=== PATIENT | male | born 1985 | race Caucasian/White ===

== ENCOUNTER 2023-04-04 12:18 | Emergency (ER) | payer OTHER, SELFPAY ==
[2023-04-04 12:42] VITALS: BP 152/103
[2023-04-04 12:49] VITALS: BP 152/103
[2023-04-04 13:00] VITALS: BP 134/62
--- NOTE | 2023-04-04 13:23 | ED.GENMED ---
History of Present Illness
General
Chief Complaint: Fainting/Passed Out
Source: patient
Exam Limitations: none
Time Seen by Provider: 04/04/23 12:55
Nursing documentation reviewed up to this point in time: agreed with
Travel History
Have you had any contact with someone who has COVID-19?: No
Do you have any symptoms of coronavirus? Fever > 100 degrees, chills, cough, shortness of breath, sore throat, loss of taste or smell, muscle aches, or headache?: No
History of Present Illness
History of Present Illness:
Patient is a 37-year male has a history of Umqtw-Lmtuxxonh-Nwcgo syndrome/SVT,/ablation weight loss surgery presents to the ER for evaluation. Patient reports he was standing to urinate yesterday morning when he believes he passed out because he
woke up on the ground. Patient does not report feeling rapid heart rate or lightheaded chest pain. Yefri� heard a noise, heard a thump. Yefri� reports she did see him walk out of the room. No vomiting since.
Today however patient reports he has had a headache throughout the day and felt nauseous and has had difficulty concentrating.
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
Review of Systems
Review of Systems
Allergies reviewed?: Yes
Other source history: family
All Other Systems: ROS reviewed and negative except as documented in HPI and ROS
Constitutional: Reports no symptoms
Cardiac: Reports syncope; Denies chest pain, diaphoresis or palpitations
ABD/GI: Denies nausea or vomiting
Musculoskeletal: Reports no symptoms
Skin: Reports no symptoms
Neurological: Reports headache
Psychiatric: Reports no symptoms
Phy Exam
General Physical Exam
General Presentation: no apparent distress
General age: appears stated age
General Skin: warm and dry
General Habitus: normal
General Mental: alert
General Hydration: appears well hydrated
Cardiovascular Exam
Cardiovascular Exam: regular rate/rhythm, no murmur and normal peripheral pulses
Pulmonary Exam
Pulmonary Exam: lungs clear and no respiratory distress
Neurological Exam
Neurological Exam: alert, oriented x3, no motor deficits and no sensory deficits
Musculoskeletal Exam
Musculoskeletal Exam: full ROM
Skin Exam
Skin Exam: normal color and warm/dry
Psychiatric Exam
Psychiatric Exam: normal mood/affect
Course
Orders/Labs/Results
Orders:
Orders
04/04/23 12:25
Electrocardiogram (*1) Urgent
Reason for Study: Syncope
EKG- Treatment ONCE
04/04/23 13:[address] Cervical Spine W/o Iv Contr Urgent
Comment:
Reason For Exam: trauma
CT Head W/o Iv Contrast Urgent
Comment:
Reason For Exam: trauma
04/04/23 13:34
IV Insert/Care/Rem.- Treatment PRN
0.9% Sodium Chloride 1000 ml [Nss] 1,000 ml IV BOLUS
04/04/23 13:49
Complete Blood Count/With Diff Urgent
Comprehensive Metabolic Panel Urgent
Abnormal Lab Results
04/04/23
13:49
RBC 4.55 L 10^6/uL
(4.70-6.10)
MPV 11.1 H fL
(7.4-10.4)
Absolute Monos (auto) 0.8 H 10^3/uL
(0.1-0.6)
ALT 75 H U/L
(0-50)
04/04/23 13:49
04/04/23 13:49
Vital Signs
Initial and Last Documented VS:
Initial Vital Signs
Pulse Ox
99
04/04/23 12:41
Last Documented Vital Signs
Temp Pulse Resp BP Pulse Ox
98.5 F 63 15 147/74 96
04/04/23 12:49 04/04/23 16:15 04/04/23 16:15 04/04/23 16:00 04/04/23 16:15
Equal Employment Opportunity Officer consulted with Physician
Equal Employment Opportunity Officer consulted with physician?: Yes
Name of Physician Consulted: Lula
MDM/Problems Addressed
Differential Diagnosis Includes:
Not limited to syncope, arrhythmia, head injury, intracranial hemorrhage, concussion
MDM/Problems Addressed:
Symptoms are consistent with likely syncopal episode patient was urinating when this occurred yesterday. Patient has no prior history of syncope but does have history of Ugwds-Trkyzplcy-Yrjua syndrome he reports normally in the past with his
episodes of Llkoi-Lpcvjcneb-Oltdg he would feel lightheaded. He does not recall feeling lightheaded. Patient since yesterday has had a headache nausea difficulty concentrating. No obvious head injury on exam no blood thinners. CT head and
cervical spine are negative. Patient was monitored here initially hypertensive however has improved. Labs unremarkable. Patient has been normal sinus rhythm with no arrhythmia.
Case reviewed with ED physician will DC however with cardiology for possible Holter monitor as well as a family doctor for further reevaluation. Symptoms consistent with syncope, head injury/ concussion. he has been walking here in the ER and is
ambulatory with a steady gait.
*Radiology
Radiology exam reviewed: radiology read reviewed
*Pulse Oximetry
Patient hypoxic: no
*EKG
Interpreted by ED Provider?: Yes
Interpretation: normal
Heart Rate: 96
Rate: normal
Rhythm: sinus
Ischemia: no ischemia
*Critical Care Note
Total Time (30-74mins, 75-104mins- exclusive of procedures): Not Applicable
ED Attending Note
-
Portions of this chart may have been created with voice recognition software.� Occasional wrong word or��sound alike� substitutions may have occurred due to the inherent limitations of voice recognition software.
Discharge Plan
Departure
Patient Disposition: Home (Routine Discharge)
Date of Disposition: 04/04/23
Time of Disposition: 16:43
Patient with high blood pressure during this ER visit?: No
Covid-19: Not Applicable
Discharge Problem:
Syncope, Head injury, Concussion
Instructions: Head Injury in Adults (DC), Syncope (Fainting) (DC)
Referrals:
Tao Ulloa MD [Family Provider] -
Activity Restrictions/Additional Instructions:
stay well hydrated . follow up with your pcp in the next several days
You may take Tylenol for symptoms.
. Also as discussed follow up with your director part for further evaluation and possible Holter monitor.
return if any worsening of symptoms
Interventions
Interventions:
*Risk Screen - Suicide Last Done: 04/04/23 12:49
*General Assessment Last Done: 04/04/23 12:49
*Neglect/Abuse Screening Last Done: 04/04/23 12:49
ED- Fall Risk Assessment Last Done: 04/04/23 12:49
*ED COVID-19 Vaccine History Last Done: 04/04/23 12:22
ED- Cardiac Assessment Last Done: 04/04/23 12:49
ED- Neurological Assessment Last Done: 04/04/23 12:49
[2023-04-04] MEDS: NSS 1000 IV (13:50)
[2023-04-04 14:07] LABS: % Basophils 0.2 % (0-2); % Eosinophils 1.4 % (0-6); % Immature Granulocytes 0.2 % (0-0.5); % Lymphocytes 27.8 % (20.5-51.1); % Monocytes 8.4 % (1.7-9.3); Absolute Eosinophils 0.1 10^3/uL (0-0.7); Absolute Lymphocytes 2.6 10^3/uL (1.2-3.4); Absolute Monocytes 0.8 10^3/uL (0.1-0.6); Absolute Neutrophils 5.8 10^3/uL (1.4-6.5); Hematocrit 40.1 % (39.0-52.0); Hemoglobin 14.1 g/dL (13.0-18.0); Mean Corp Hgb Conc. 35.2 g/dL (33.0-37.0); Mean Corpuscular Volume 88.1 fL (80.0-94.0); Mean Platelet Volume 11.1 fL (7.4-10.4); Nucleated Red Blood Cells % 0 % (-); Platelet Count 247 10^3/uL (130-400); Red Blood Cell Count 4.55 10^6/uL (4.70-6.10); Red Cell Dist. Width 13.6 % (11.5-14.5); White Blood Cell Count 9.4 10^3/uL (4.8-10.8)
[2023-04-04 14:13] VITALS: BP 140/75
[2023-04-04 14:29] LABS: ALT (SGPT) 75 U/L (0-50); AST (SGOT) 56 U/L (17-59); Albumin 4.3 g/dl (3.5-5.0); Alkaline Phosphatase 110 U/L (38-126); Blood Urea Nitrogen 16 mg/dl (9-20); Calcium 9.5 mg/dl (8.4-10.2); Carbon Dioxide 30 mmol/L (22-30); Chloride 105 mmol/L (98-107); Glucose 93 mg/dl (70-99); Potassium 4.5 mmol/L (3.5-5.1); Sodium 137 mmol/L (135-145); Total Bilirubin 0.5 mg/dl (0.2-1.3); Total Protein 6.7 g/dl (6.3-8.2); eGFR > 60.00
[2023-04-04 15:00] VITALS: BP 144/69
[2023-04-04 16:00] VITALS: BP 147/74
== END 2023-04-04 17:17 | disposition home or self-care (01) ==
LOC: EMR 12:18
PROVIDERS: Nurse Practitioner; EMERGENCY PHYSICIAN Emergency Medicine; FAMILY PHYSICIAN Family Medicine
DX: R55 Syncope and collapse (principal); S09.90XA Unspecified injury of head, initial encounter; S06.0XAA Concussion with loss of consciousness status unknown, initial encounter; R51.9 Headache, unspecified; W19.XXXA Unspecified fall, initial encounter; I45.6 Pre-excitation syndrome
CPT/HCPCS: 99285; 96360; 70450; 72125; 80053; 85025; 93005